=== PATIENT | female | born 1980 | race Hispanic/Latino ===

== ENCOUNTER 2020-07-29 17:14 | Inpatient (IN) | payer OTHER ==
[~2020-07-29] VITALS: Ht 162.6 cm; Wt 142.2 kg
[2020-07-29] MEDS ORDERED: ACETAMINOPHEN 500 MG TABLET ONE (17:27)
[2020-07-29 17:36] LABS: BASOPHILS % (AUTO) 0.1 % (0.0-5.0); EOSINOPHILS % (AUTO) 1.2 % (0.0-8.0); HEMATOCRIT 41.7 % (36-48); LYMPHOCYTES % (AUTO) 60.8 % (21.0-51.0); MEAN CORPUSCULAR HEMOGLOBIN 30.5 pg (27.0-33.0); MEAN CORPUSCULAR HGB CONC 33.8 g/dL (32.0-36.0); MEAN CORPUSCULAR VOLUME 90.3 fL (79-99); MONOCYTES % (AUTO) 4.3 % (3.0-13.0); NEUTROPHILS % (AUTO) 33.4 % (40.0-77.0); PLATELET COUNT (AUTO) 132 K/uL (130-400); RED BLOOD CELL COUNT(AUTO) 4.62 MIL/uL (4.00-5.50); RED CELL DISTRIBUTION WIDTH 12.9 % (11.0-15.5); WHITE BLOOD COUNT (AUTO) 10.2 K/uL (4.8-10.8)
[2020-07-29 17:41] LABS: CARBON DIOXIDE 21 mmol/L (21-32); CHLORIDE 96 mmol/L (101-111); GLOMERULAR FILTR. RATE CALC 65 mL/min (>60); GLUCOSE,RANDOM 256 mg/dL (70-105); POTASSIUM 3.8 mmol/L (3.5-5.1); SODIUM SERUM 130 mmol/L (136-145); UREA NITROGEN, BLOOD 9 mg/dL (7-18)
[2020-07-29 17:48] LABS: INR 1.05 (0.85-1.15); PROTHROMBIN TIME 11.4 SEC (9.6-11.6)
[2020-07-29 17:50] LABS: ABG BASE EXCESS -1.6 mmol/L (-2.0-3.0); ABG HCO3 21.3 mmol/L (21.0-28.0); ABG OXYGEN SATURATION 86.3 % (95.0-99.0); ABG PCO2 31 mmHg (32-45)
[2020-07-29 17:53] LABS: ALANINE AMINOTRANSFERASE 269 U/L (12-78); ALBUMIN 3.1 g/dL (3.5-5.0); ASPARTATE AMINOTRANSFERASE 295 U/L (10-37); BILIRUBIN,TOTAL 0.6 mg/dL (0.2-1.0); CREATINE KINASE, TOTAL 139 U/L (21-232); MYOGLOBIN 42 ng/mL (10-92); TOTAL PROTEIN, SERUM 6.9 g/dL (6.0-8.3); TROPONIN I < 0.04 ng/mL (0.00-0.06)
[2020-07-29] MEDS ORDERED: DEXAMETHASONE SOD PHOSPHATE 10MG/ML 1ML VIAL ONE (18:19)
[2020-07-29] MEDS ORDERED: AZITHROMYCIN 500MG+NS 250ML 250 ML IV ONE (18:19)
[2020-07-29] MEDS ORDERED: ALBUTEROL INHALER 90MCG/INH IH ONE (18:19)
[2020-07-29] MEDS ORDERED: IBUPROFEN 600 MG TABLET ONE (18:20)
[2020-07-29] MEDS ORDERED: CEFTRIAXONE 1G VIAL ONE (18:20)
[2020-07-29] MEDS: FUROSEMIDE 40MG VIAL IVP SCH (21:15)
[2020-07-29] MEDS: CEFTRIAXONE 1G VIAL IVP SCH (21:15)
[2020-07-29] MEDS ORDERED: ONDANSETRON 4MG INJ IV PRN (21:15)
[2020-07-29] MEDS ORDERED: DOXYCYCLINE 100MG+NS 250ML IV SCH (21:15)
[2020-07-29] MEDS ORDERED: ACETAMINOPHEN 325 MG TAB PO PRN (21:15)
[2020-07-29] MEDS: DEXAMETHASONE SOD PHOSPHATE 4 MG/ML 1ML VIAL IVP SCH (21:15)
[2020-07-29] MEDS ORDERED: ERGOCALCIFEROL (VITAMIN D2) 50,000 UNIT CAPSULE PO ONE (21:15)
[2020-07-29] MEDS: DOXYCYCLINE 100MG+NS 250ML 250 ML IV SCH (22:00)
[2020-07-29 22:01] LABS: HEMOGLOBIN A1C 11.3 % (4.0-6.0)
[2020-07-29 22:33] LABS: ALBUMIN 3.1 g/dL (3.5-5.0); BILIRUBIN,DIRECT 0.3 mg/dL (0.0-0.3); BILIRUBIN,TOTAL 0.6 mg/dL (0.2-1.0); CRP QUANTITATIVE 156.8 mg/L (0.00-9.0); MAGNESIUM 1.9 mg/dL (1.80-2.40); PHOSPHORUS 3.5 mg/dL (2.5-4.9); TOTAL PROTEIN, SERUM 7.1 g/dL (6.0-8.3)
[2020-07-30] MEDS ORDERED: 0.9% NACL 250ML 250 ML IV ONE ×2 (01:58→02:32)
[2020-07-30 04:36] LABS: HEMATOCRIT 40.2 % (36-48); LYMPHOCYTES % (AUTO) 70.9 % (21.0-51.0); MEAN CORPUSCULAR HEMOGLOBIN 30.5 pg (27.0-33.0); MEAN CORPUSCULAR HGB CONC 33.1 g/dL (32.0-36.0); MEAN CORPUSCULAR VOLUME 92.2 fL (79-99); MONOCYTES % (AUTO) 2.6 % (3.0-13.0); NEUTROPHILS % (AUTO) 26.3 % (40.0-77.0); PLATELET COUNT (AUTO) 127 K/uL (130-400); RED BLOOD CELL COUNT(AUTO) 4.36 MIL/uL (4.00-5.50); WHITE BLOOD COUNT (AUTO) 8.8 K/uL (4.8-10.8)
[2020-07-30 04:46] LABS: ALBUMIN 3.1 g/dL (3.5-5.0); BILIRUBIN,TOTAL 0.6 mg/dL (0.2-1.0); CRP QUANTITATIVE 148.7 mg/L (0.00-9.0); POTASSIUM 4.4 mmol/L (3.5-5.1); TOTAL PROTEIN, SERUM 6.5 g/dL (6.0-8.3)
[2020-07-30] MEDS: INSULIN LISPRO 100 UNIT/ML 3ML SQ SCH ×7 (07:30→21:00)
[2020-07-30] MEDS ORDERED: ZINC SULFATE 220 CAPSULE ONE (08:21)
[2020-07-30] MEDS ORDERED: ENOXAPARIN SODIUM 40 MG/0.4 ML SYRINGE SQ ONE (08:21)
[2020-07-30] MEDS ORDERED: CEFTRIAXONE 1G VIAL ONE (08:21)
[2020-07-30] MEDS ORDERED: ASCORBIC ACID 500 MG TAB ONE (08:21)
[2020-07-30] MEDS ORDERED: DOXYCYCLINE 100MG+NS 250ML 250 ML IV ONE (08:21)
[2020-07-30] MEDS ORDERED: FAMOTIDINE 20MG VIAL IV ONE (08:22)
[2020-07-30] MEDS: FAMOTIDINE 20MG VIAL IV SCH ×2 (09:00→21:00)
[2020-07-30] MEDS: ENOXAPARIN SODIUM 40 MG/0.4 ML SYRINGE SQ SCH (09:00)
[2020-07-30] MEDS: DOXYCYCLINE 100MG+NS 250ML 250 ML IV SCH ×2 (09:00→21:00)
[2020-07-30] MEDS: ASCORBIC ACID 500 MG TAB PO SCH (09:00)
[2020-07-30] MEDS: ZINC SULFATE 220 CAPSULE PO SCH (09:00)
[2020-07-30] MEDS: CEFTRIAXONE 1G VIAL IVP SCH ×2 (09:15→21:15)
[2020-07-30] MEDS ORDERED: PHARMACY COMMUNICATION MISC SCH (13:15)
[2020-07-30] MEDS: INSULIN GLARGINE 100 UNITS/ML 10 ML VIAL SQ SCH (21:00)
[2020-07-30] MEDS: DEXAMETHASONE SOD PHOSPHATE 4 MG/ML 1ML VIAL IVP SCH (21:15)
[2020-07-30] MEDS: FUROSEMIDE 40MG VIAL IVP SCH (21:15)
[2020-07-30] MEDS ORDERED: DEXAMETHASONE SOD PHOSPHATE 10MG/ML 1ML VIAL ONE (23:57)
[2020-07-30] MEDS ORDERED: ACETAMINOPHEN 325 MG TAB ONE (23:57)
[2020-07-30] MEDS ORDERED: FUROSEMIDE 40MG VIAL ONE (23:59)
[2020-07-30] MEDS ORDERED: INSULIN HUMULIN R 100 UNIT/ML 3ML ONE (23:59)
[2020-07-31] MEDS ORDERED: FAMOTIDINE 20MG VIAL IV ONE
[2020-07-31] MEDS ORDERED: CEFTRIAXONE 1G VIAL ONE
[2020-07-31] MEDS ORDERED: DOXYCYCLINE 100MG+NS 250ML 250 ML IV ONE
[2020-07-31 01:20] VITALS: BP 115/72
[2020-07-31] MEDS: INSULIN GLARGINE 100 UNITS/ML 10 ML VIAL SQ SCH ×2 (01:40→21:17)
[2020-07-31] MEDS ORDERED: LISI2.5T13 PO (01:51)
[2020-07-31] MEDS ORDERED: LINA5TAB PO (01:54)
[2020-07-31] MEDS: ACETAMINOPHEN 325 MG TAB PO PRN ×2 (03:24→21:59)
[2020-07-31 03:54] VITALS: BP 130/75
[2020-07-31 04:33] LABS: BASOPHILS % (AUTO) 0.1 % (0.0-5.0); HEMATOCRIT 43.5 % (36-48); LYMPHOCYTES % (AUTO) 49.1 % (21.0-51.0); MEAN CORPUSCULAR HGB CONC 33.3 g/dL (32.0-36.0); MEAN CORPUSCULAR VOLUME 89.9 fL (79-99); MONOCYTES % (AUTO) 4.3 % (3.0-13.0); NEUTROPHILS % (AUTO) 46.3 % (40.0-77.0); PLATELET COUNT (AUTO) 194 K/uL (130-400); RED BLOOD CELL COUNT(AUTO) 4.84 MIL/uL (4.00-5.50); RED CELL DISTRIBUTION WIDTH 12.9 % (11.0-15.5)
[2020-07-31 04:49] LABS: ALBUMIN 3.1 g/dL (3.5-5.0); BILIRUBIN,TOTAL 0.5 mg/dL (0.2-1.0); CREATININE 0.9 mg/dL (0.5-1.5); CRP QUANTITATIVE 94.4 mg/L (0.00-9.0); TOTAL PROTEIN, SERUM 7.4 g/dL (6.0-8.3)
[2020-07-31] MEDS: INSULIN LISPRO 100 UNIT/ML 3ML SQ SCH ×7 (06:42→21:14)
[2020-07-31 08:00] VITALS: BP 129/86
[2020-07-31] MEDS: FAMOTIDINE 20MG VIAL IV SCH ×2 (08:36→21:12)
[2020-07-31] MEDS: ASCORBIC ACID 500 MG TAB PO SCH (08:36)
[2020-07-31] MEDS: ZINC SULFATE 220 CAPSULE PO SCH (08:37)
[2020-07-31] MEDS: ENOXAPARIN SODIUM 40 MG/0.4 ML SYRINGE SQ SCH (08:38)
[2020-07-31] MEDS: CEFTRIAXONE 1G VIAL IVP SCH ×2 (08:38→21:12)
[2020-07-31 09:13] LABS: HEPATITIS A ANTIBODY IGM Negative (Negative); HEPATITIS B CORE IGM Negative (Negative); HEPATITIS Bs ANTIGEN SCREEN P Negative (Negative)
[2020-07-31] MEDS ORDERED: PHARMACY COMMUNICATION MISC SCH ×3 (11:00→17:15)
[2020-07-31] MEDS: DOXYCYCLINE 100MG+NS 250ML 250 ML IV SCH ×2 (11:54→21:11)
[2020-07-31 12:00] VITALS: BP 108/64
[2020-07-31] MEDS ORDERED: GUAIFENESIN-DM 200/20 MG 10 ML ONE (13:51)
[2020-07-31 16:00] VITALS: BP 137/79
[2020-07-31 20:00] VITALS: BP 142/98
[2020-07-31] MEDS: DEXAMETHASONE SOD PHOSPHATE 4 MG/ML 1ML VIAL IVP SCH (21:12)
[2020-07-31] MEDS: FUROSEMIDE 40MG VIAL IVP SCH (21:57)
[2020-08-01] VITALS: BP 107/48
[2020-08-01 04:00] VITALS: BP 106/59
[2020-08-01 05:38] LABS: APPEARANCE,URINE Cloudy (CLEAR); BILIRUBIN,URINE Negative (NEGATIVE); COLOR,URINE Yellow (YELLOW); GLUCOSE, URINE (UA) 500 mg/dL (NEGATIVE); KETONES,URINE >=80 mg/dL (NEGATIVE); LEUKOCYTE ESTERASE ,URINE Moderate (NEGATIVE); NITRATE,URINE Negative (NEGATIVE); OCCULT BLOOD,URINE Large (NEGATIVE); PH,URINE 6.5 (5.0-8.0); PROTEIN,URINE POS 1+ mg/dL (NEGATIVE); UROBILINOGEN,URINE 0.2 mg/dL (0.2-1.0)
[2020-08-01 05:52] LABS: BACTERIA,URINE Moderate /HPF (None Seen); TRICHOMONAS,URINE Moderate /LPF (None Seen); WBC,URINE >100 /HPF (0-1)
[2020-08-01 06:07] LABS: EOSINOPHILS % (AUTO) 0.9 % (0.0-8.0); HEMATOCRIT 40.7 % (36-48); MEAN CORPUSCULAR HEMOGLOBIN 30.3 pg (27.0-33.0); MEAN CORPUSCULAR HGB CONC 33.9 g/dL (32.0-36.0); MEAN CORPUSCULAR VOLUME 89.3 fL (79-99); MONOCYTES % (AUTO) 5.7 % (3.0-13.0); NEUTROPHILS % (AUTO) 45.2 % (40.0-77.0); PLATELET COUNT (AUTO) 197 K/uL (130-400); RED BLOOD CELL COUNT(AUTO) 4.56 MIL/uL (4.00-5.50); RED CELL DISTRIBUTION WIDTH 12.7 % (11.0-15.5); WHITE BLOOD COUNT (AUTO) 10.2 K/uL (4.8-10.8)
[2020-08-01 06:25] LABS: ALBUMIN 2.8 g/dL (3.5-5.0); BILIRUBIN,TOTAL 0.6 mg/dL (0.2-1.0); CREATININE 0.8 mg/dL (0.5-1.5); CRP QUANTITATIVE 91.6 mg/L (0.00-9.0); POTASSIUM 3.7 mmol/L (3.5-5.1); TOTAL PROTEIN, SERUM 6.8 g/dL (6.0-8.3)
[2020-08-01] MEDS: INSULIN LISPRO 100 UNIT/ML 3ML SQ SCH ×7 (06:41→20:50)
[2020-08-01] MEDS: ENOXAPARIN SODIUM 40 MG/0.4 ML SYRINGE SQ SCH (08:51)
[2020-08-01] MEDS: ZINC SULFATE 220 CAPSULE PO SCH (08:52)
[2020-08-01] MEDS: CEFTRIAXONE 1G VIAL IVP SCH ×2 (08:52→20:54)
[2020-08-01] MEDS: FAMOTIDINE 20MG VIAL IV SCH ×2 (08:52→21:22)
[2020-08-01] MEDS: LISINOPRIL 2.5 MG TABLET PO SCH (08:52)
[2020-08-01] MEDS: ASCORBIC ACID 500 MG TAB PO SCH (08:52)
[2020-08-01] MEDS: DOXYCYCLINE 100MG+NS 250ML 250 ML IV SCH ×2 (08:53→20:54)
[2020-08-01 09:10] VITALS: BP 125/87
[2020-08-01] MEDS: GUAIFENESIN-DM 200/20 MG 10 ML PO PRN ×2 (09:31→13:04)
[2020-08-01 12:23] VITALS: BP 133/82
[2020-08-01] MEDS ORDERED: COMPOUND IV REFRIGERATED 1 EACH IVSOLN MISC PRN (14:00)
[2020-08-01] MEDS ORDERED: REMDESIVIR (EUA) 520 200 MG in 0.9% NACL 250ML 250 ML IV ONE (14:00)
[2020-08-01] MEDS: ACETAMINOPHEN 325 MG TAB PO PRN (18:06)
[2020-08-01 18:51] VITALS: BP 124/73
[2020-08-01 19:00] VITALS: BP 109/74
[2020-08-01] MEDS: INSULIN GLARGINE 100 UNITS/ML 10 ML VIAL SQ SCH (20:51)
[2020-08-01] MEDS: FUROSEMIDE 40MG VIAL IVP SCH (20:54)
[2020-08-01] MEDS: DEXAMETHASONE SOD PHOSPHATE 4 MG/ML 1ML VIAL IVP SCH (20:54)
[2020-08-02] VITALS: BP 113/68
[2020-08-02 04:00] VITALS: BP 105/62
[2020-08-02 05:15] LABS: ALBUMIN 2.7 g/dL (3.5-5.0); BILIRUBIN,TOTAL 0.6 mg/dL (0.2-1.0); CREATININE 0.6 mg/dL (0.5-1.5); POTASSIUM 3.8 mmol/L (3.5-5.1); TOTAL PROTEIN, SERUM 6.1 g/dL (6.0-8.3)
[2020-08-02] MEDS: REMDESIVIR LABS MISC SCH (06:00)
[2020-08-02] MEDS: INSULIN LISPRO 100 UNIT/ML 3ML SQ SCH ×7 (06:57→20:10)
[2020-08-02 08:00] VITALS: BP 112/70
[2020-08-02] MEDS: DOXYCYCLINE 100MG+NS 250ML 250 ML IV SCH ×2 (09:38→20:01)
[2020-08-02] MEDS: FAMOTIDINE 20MG VIAL IV SCH ×2 (09:38→20:02)
[2020-08-02] MEDS: LISINOPRIL 2.5 MG TABLET PO SCH (09:40)
[2020-08-02] MEDS: ZINC SULFATE 220 CAPSULE PO SCH (09:40)
[2020-08-02] MEDS: ASCORBIC ACID 500 MG TAB PO SCH (09:40)
[2020-08-02] MEDS: ENOXAPARIN SODIUM 40 MG/0.4 ML SYRINGE SQ SCH (09:41)
[2020-08-02] MEDS: CEFTRIAXONE 1G VIAL IVP SCH ×2 (09:41→20:01)
[2020-08-02 12:00] VITALS: BP 127/68
[2020-08-02] MEDS: REMDESIVIR (EUA) 520 100 MG in 0.9% NACL 250ML 250 ML IV SCH (14:39)
[2020-08-02 18:02] VITALS: BP 120/68
[2020-08-02 19:00] VITALS: BP 134/79
[2020-08-02] MEDS ORDERED: IBUPROFEN 400 MG TABLET PO PRN (19:00)
[2020-08-02] MEDS ORDERED: KCL 20 MEQ ERTAB PO SCH (19:00)
[2020-08-02] MEDS: DEXAMETHASONE SOD PHOSPHATE 4 MG/ML 1ML VIAL IVP SCH (20:02)
[2020-08-02] MEDS: INSULIN GLARGINE 100 UNITS/ML 10 ML VIAL SQ SCH (20:07)
[2020-08-02] MEDS: FUROSEMIDE 40MG VIAL IVP SCH (21:15)
[2020-08-03] VITALS: BP 119/76
[2020-08-03 04:00] VITALS: BP 124/71
[2020-08-03 05:55] LABS: BASOPHILS % (AUTO) 0.1 % (0.0-5.0); LYMPHOCYTES % (AUTO) 51.3 % (21.0-51.0); MEAN CORPUSCULAR HGB CONC 33.8 g/dL (32.0-36.0); MEAN CORPUSCULAR VOLUME 88.9 fL (79-99); MONOCYTES % (AUTO) 4.7 % (3.0-13.0); NEUTROPHILS % (AUTO) 43.6 % (40.0-77.0); PLATELET COUNT (AUTO) 240 K/uL (130-400); RED CELL DISTRIBUTION WIDTH 12.7 % (11.0-15.5); WHITE BLOOD COUNT (AUTO) 9.8 K/uL (4.8-10.8)
[2020-08-03] MEDS: REMDESIVIR LABS MISC SCH (06:00)
[2020-08-03 06:19] LABS: ALBUMIN 2.4 g/dL (3.5-5.0); BILIRUBIN,DIRECT 0.2 mg/dL (0.0-0.3); BILIRUBIN,TOTAL 0.7 mg/dL (0.2-1.0); CREATININE 0.7 mg/dL (0.5-1.5); CRP QUANTITATIVE 146.7 mg/L (0.00-9.0); MAGNESIUM 1.8 mg/dL (1.80-2.40); POTASSIUM 3.6 mmol/L (3.5-5.1); TOTAL PROTEIN, SERUM 6.4 g/dL (6.0-8.3)
[2020-08-03] MEDS: INSULIN LISPRO 100 UNIT/ML 3ML SQ SCH ×5 (06:37→16:49)
[2020-08-03] MEDS: LISINOPRIL 2.5 MG TABLET PO SCH (08:32)
[2020-08-03] MEDS: ZINC SULFATE 220 CAPSULE PO SCH (08:32)
[2020-08-03] MEDS: FAMOTIDINE 20MG VIAL IV SCH ×2 (08:32→20:16)
[2020-08-03] MEDS: ASCORBIC ACID 500 MG TAB PO SCH (08:33)
[2020-08-03] MEDS: DOXYCYCLINE 100MG+NS 250ML 250 ML IV SCH ×2 (08:33→20:16)
[2020-08-03] MEDS: CEFTRIAXONE 1G VIAL IVP SCH ×2 (08:33→20:21)
[2020-08-03] MEDS: ENOXAPARIN SODIUM 40 MG/0.4 ML SYRINGE SQ SCH (08:33)
[2020-08-03 09:12] VITALS: BP 126/48
[2020-08-03 12:00] VITALS: BP 126/85
[2020-08-03] MEDS: GUAIFENESIN-DM 200/20 MG 10 ML PO PRN ×2 (12:11→20:16)
[2020-08-03] MEDS: REMDESIVIR (EUA) 520 100 MG in 0.9% NACL 250ML 250 ML IV SCH (14:12)
[2020-08-03] MEDS ORDERED: KCL 20 MEQ ERTAB PO SCH (16:00)
[2020-08-03] MEDS: DEXAMETHASONE SOD PHOSPHATE 4 MG/ML 1ML VIAL IVP SCH (16:45)
[2020-08-03] MEDS: INSULIN HUMULIN R 100 UNIT/ML 3ML SQ SCH ×2 (16:49→20:33)
[2020-08-03 17:22] VITALS: BP 130/72
[2020-08-03 19:00] VITALS: BP 109/77
[2020-08-03] MEDS ORDERED: INSULIN GLARGINE 100 UNITS/ML 10 ML VIAL SQ SCH (21:00)
[2020-08-04] VITALS: BP 147/69
[2020-08-04] MEDS: DEXAMETHASONE SOD PHOSPHATE 4 MG/ML 1ML VIAL IVP SCH ×2 (03:04→14:48)
[2020-08-04 04:00] VITALS: BP 121/70
[2020-08-04 04:15] LABS: HEMATOCRIT 39.3 % (36-48); LYMPHOCYTES % (AUTO) 46.3 % (21.0-51.0); MEAN CORPUSCULAR HEMOGLOBIN 29.8 pg (27.0-33.0); MEAN CORPUSCULAR HGB CONC 33.6 g/dL (32.0-36.0); MEAN CORPUSCULAR VOLUME 88.7 fL (79-99); MONOCYTES % (AUTO) 5.1 % (3.0-13.0); NEUTROPHILS % (AUTO) 47.9 % (40.0-77.0); PLATELET COUNT (AUTO) 284 K/uL (130-400); RED BLOOD CELL COUNT(AUTO) 4.43 MIL/uL (4.00-5.50); RED CELL DISTRIBUTION WIDTH 12.8 % (11.0-15.5)
[2020-08-04 04:30] LABS: CREATININE 0.7 mg/dL (0.5-1.5); CRP QUANTITATIVE 91.8 mg/L (0.00-9.0); POTASSIUM 3.7 mmol/L (3.5-5.1)
[2020-08-04] MEDS: REMDESIVIR LABS MISC SCH (06:00)
[2020-08-04] MEDS: INSULIN LISPRO 100 UNIT/ML 3ML SQ SCH ×3 (06:41→17:09)
[2020-08-04] MEDS: INSULIN HUMULIN R 100 UNIT/ML 3ML SQ SCH ×4 (06:43→20:41)
[2020-08-04 08:24] VITALS: BP 133/78
[2020-08-04] MEDS: ZINC SULFATE 220 CAPSULE PO SCH (08:28)
[2020-08-04] MEDS: CEFTRIAXONE 1G VIAL IVP SCH ×2 (08:28→20:41)
[2020-08-04] MEDS: ASCORBIC ACID 500 MG TAB PO SCH (08:28)
[2020-08-04] MEDS: ENOXAPARIN SODIUM 40 MG/0.4 ML SYRINGE SQ SCH (08:28)
[2020-08-04] MEDS: FAMOTIDINE 20MG VIAL IV SCH ×2 (08:28→20:38)
[2020-08-04] MEDS: LISINOPRIL 2.5 MG TABLET PO SCH (08:28)
[2020-08-04] MEDS: DOXYCYCLINE 100MG+NS 250ML 250 ML IV SCH ×2 (08:28→20:38)
[2020-08-04 12:41] VITALS: BP 150/76
[2020-08-04] MEDS: REMDESIVIR (EUA) 520 100 MG in 0.9% NACL 250ML 250 ML IV SCH (14:48)
[2020-08-04] MEDS ORDERED: KCL 20 MEQ ERTAB PO SCH (15:30)
[2020-08-04] MEDS: GUAIFENESIN-DM 200/20 MG 10 ML PO PRN ×2 (17:26→23:58)
[2020-08-04 18:17] VITALS: BP 128/79
[2020-08-04] MEDS: INSULIN GLARGINE 100 UNITS/ML 10 ML VIAL SQ SCH (20:40)
[2020-08-05] VITALS: BP 130/61
[2020-08-05] MEDS: DEXAMETHASONE SOD PHOSPHATE 4 MG/ML 1ML VIAL IVP SCH ×2 (01:48→15:05)
[2020-08-05 04:00] VITALS: BP 123/78
[2020-08-05] MEDS: REMDESIVIR LABS MISC SCH (06:00)
[2020-08-05 06:22] LABS: BASOPHILS % (AUTO) 0.2 % (0.0-5.0); HEMATOCRIT 46.5 % (36-48); LYMPHOCYTES % (AUTO) 52.6 % (21.0-51.0); MEAN CORPUSCULAR HEMOGLOBIN 29.7 pg (27.0-33.0); MEAN CORPUSCULAR HGB CONC 33.1 g/dL (32.0-36.0); MEAN CORPUSCULAR VOLUME 89.6 fL (79-99); MONOCYTES % (AUTO) 3.9 % (3.0-13.0); NEUTROPHILS % (AUTO) 42.3 % (40.0-77.0); PLATELET COUNT (AUTO) 340 K/uL (130-400); RED BLOOD CELL COUNT(AUTO) 5.19 MIL/uL (4.00-5.50); RED CELL DISTRIBUTION WIDTH 12.8 % (11.0-15.5); WHITE BLOOD COUNT (AUTO) 21.3 K/uL (4.8-10.8)
[2020-08-05 06:34] LABS: CREATININE 0.8 mg/dL (0.5-1.5); MAGNESIUM 1.6 mg/dL (1.80-2.40); POTASSIUM 3.5 mmol/L (3.5-5.1)
[2020-08-05] MEDS: INSULIN HUMULIN R 100 UNIT/ML 3ML SQ SCH ×4 (07:19→20:51)
[2020-08-05] MEDS: INSULIN LISPRO 100 UNIT/ML 3ML SQ SCH ×3 (07:21→16:53)
[2020-08-05 07:30] VITALS: BP 130/77
[2020-08-05] MEDS: DOXYCYCLINE 100MG+NS 250ML 250 ML IV SCH ×2 (08:14→20:25)
[2020-08-05] MEDS: LISINOPRIL 2.5 MG TABLET PO SCH (08:14)
[2020-08-05] MEDS: ASCORBIC ACID 500 MG TAB PO SCH (08:14)
[2020-08-05] MEDS: CEFTRIAXONE 1G VIAL IVP SCH (08:14)
[2020-08-05] MEDS: ZINC SULFATE 220 CAPSULE PO SCH (08:14)
[2020-08-05] MEDS: FAMOTIDINE 20MG VIAL IV SCH ×2 (08:14→20:25)
[2020-08-05] MEDS: ENOXAPARIN SODIUM 40 MG/0.4 ML SYRINGE SQ SCH (08:14)
[2020-08-05 11:00] VITALS: BP 102/53
[2020-08-05] MEDS: BARICITINIB (EUA) 2 MG TABLET PO SCH (12:11)
[2020-08-05 16:00] VITALS: BP 120/78
[2020-08-05] MEDS: REMDESIVIR (EUA) 520 100 MG in 0.9% NACL 250ML 250 ML IV SCH (16:47)
[2020-08-05] MEDS ORDERED: KCL 20 MEQ ERTAB PO SCH (19:15)
[2020-08-05] MEDS ORDERED: MAGNESIUM 2GM PREMIX 50ML 50 ML IV SCH (19:15)
[2020-08-05] MEDS ORDERED: MAGNESIUM 2GM PREMIX 50ML 50 ML IV ONE (19:46)
[2020-08-05] MEDS ORDERED: KCL 20 MEQ ERTAB PO ONE (19:46)
[2020-08-05 20:33] VITALS: BP 129/72
[2020-08-05] MEDS: INSULIN GLARGINE 100 UNITS/ML 10 ML VIAL SQ SCH (20:51)
[2020-08-06 00:11] VITALS: BP 134/83
[2020-08-06] MEDS ORDERED: PHARMACY COMMUNICATION MISC SCH ×2 (00:45→12:00)
[2020-08-06] MEDS: REMDESIVIR LABS MISC SCH (01:09)
[2020-08-06 04:23] VITALS: BP 118/76
[2020-08-06] MEDS: INSULIN LISPRO 100 UNIT/ML 3ML SQ SCH ×2 (05:49→11:30)
[2020-08-06] MEDS: INSULIN HUMULIN R 100 UNIT/ML 3ML SQ SCH ×2 (05:50→11:30)
[2020-08-06 06:18] LABS: ALBUMIN 2.3 g/dL (3.5-5.0); BILIRUBIN,DIRECT 0.3 mg/dL (0.0-0.3); BILIRUBIN,TOTAL 0.8 mg/dL (0.2-1.0); CREATININE 0.7 mg/dL (0.5-1.5); CRP QUANTITATIVE 156.8 mg/L (0.00-9.0); MAGNESIUM 1.5 mg/dL (1.80-2.40)
[2020-08-06 06:41] LABS: BASOPHILS % (AUTO) 0.1 % (0.0-5.0); EOSINOPHILS % (AUTO) 0.1 % (0.0-8.0); HEMATOCRIT 40.7 % (36-48); LYMPHOCYTES % (AUTO) 44.7 % (21.0-51.0); MEAN CORPUSCULAR HGB CONC 33.4 g/dL (32.0-36.0); MEAN CORPUSCULAR VOLUME 89.6 fL (79-99); MONOCYTES % (AUTO) 4.3 % (3.0-13.0); NEUTROPHILS % (AUTO) 49.7 % (40.0-77.0); PLATELET COUNT (AUTO) 219 K/uL (130-400); RED BLOOD CELL COUNT(AUTO) 4.54 MIL/uL (4.00-5.50); RED CELL DISTRIBUTION WIDTH 13.2 % (11.0-15.5); WHITE BLOOD COUNT (AUTO) 16.1 K/uL (4.8-10.8)
[2020-08-06 07:05] LABS: POTASSIUM 4.1 mmol/L (3.5-5.1)
[2020-08-06] MEDS: BARICITINIB (EUA) 2 MG TABLET PO SCH (09:00)
[2020-08-06] MEDS ORDERED: ENOXAPARIN SODIUM 0.5 MG/KG EACH SQ SCH (09:00)
[2020-08-06] MEDS ORDERED: DEXAMETHASONE SOD PHOSPHATE 4 MG/ML 1ML VIAL IVP SCH (09:00)
[2020-08-06 09:06] VITALS: BP 132/80
[2020-08-06] MEDS ORDERED: FUROSEMIDE 20MG VIAL IV SCH (09:15)
[2020-08-06] MEDS: LISINOPRIL 2.5 MG TABLET PO SCH (09:24)
[2020-08-06] MEDS: ZINC SULFATE 220 CAPSULE PO SCH (09:24)
[2020-08-06] MEDS: ASCORBIC ACID 500 MG TAB PO SCH (09:24)
[2020-08-06 09:27] LABS: ABG BASE EXCESS -1.1 mmol/L (-2.0-3.0); ABG HCO3 24.9 mmol/L (21.0-28.0); ABG OXYGEN SATURATION 90.1 % (95.0-99.0); ABG PCO2 46 mmHg (32-45)
[2020-08-06 10:00] VITALS: BP 128/76
[2020-08-06] MEDS ORDERED: ENOXAPARIN SODIUM 80 MG/0.8 ML SQ SCH ×2 (10:15→21:00)
[2020-08-06] MEDS ORDERED: LORAZEPAM 2 MG/ML 1 ML VIAL ONE (10:22)
[2020-08-06] MEDS ORDERED: DEXMEDETOMIDINE HCL 200 MCG in 0.9%NACL 50ML 50 ML IV SCH (11:00)
[2020-08-06] MEDS ORDERED: FENTANYL 2500MCG+NS 250ML 250 ML IV ONE (11:23)
[2020-08-06] MEDS ORDERED: PROPOFOL 1000 MG/100 ML 100 ML IV ONE (11:26)
[2020-08-06] MEDS ORDERED: 0.9% NACL 500ML IV.SOLN 500 ML IV ONE (11:29)
[2020-08-06 16:42] VITALS: BP 95/55
[2020-08-06] MEDS ORDERED: ENOXAPARIN SODIUM 60 MG/0.6 ML SQ SCH (21:00)
[2020-08-06] MEDS ORDERED: FAMOTIDINE 20MG TAB PO SCH (21:00)
== END 2020-08-06 12:42 | disposition expired | DRG 871 ==
LOC: EDH 17:14 → EDHIP 21:09 → 4AH 07-30 22:13 → 2AH 08-06 08:51
PROVIDERS: ADMIT Internal Medicine; ATTEND Internal Medicine
PROC: XW13325 Transfusion of Convalescent Plasma (Nonautologous) into Peripheral Vein, Percutaneous Approach, New Technology Group 5 (ICD-10-PCS; principal; 2020-07-30)
PROC: 5A0935A Assistance with Respiratory Ventilation, Less than 24 Consecutive Hours, High Flow/Velocity Cannula (ICD-10-PCS; 2020-07-31)
PROC: XW033E5 Introduction of Remdesivir Anti-infective into Peripheral Vein, Percutaneous Approach, New Technology Group 5 (ICD-10-PCS; 2020-08-01)
PROC: 5A0935A Assistance with Respiratory Ventilation, Less than 24 Consecutive Hours, High Flow/Velocity Cannula (ICD-10-PCS; 2020-08-01)
PROC: 5A0945A Assistance with Respiratory Ventilation, 24-96 Consecutive Hours, High Flow/Velocity Cannula (ICD-10-PCS; 2020-08-02)
PROC: 5A0945A Assistance with Respiratory Ventilation, 24-96 Consecutive Hours, High Flow/Velocity Cannula (ICD-10-PCS; 2020-08-04)
PROC: 5A09357 Assistance with Respiratory Ventilation, Less than 24 Consecutive Hours, Continuous Positive Airway Pressure (ICD-10-PCS; 2020-08-06)
PROC: 5A12012 Performance of Cardiac Output, Single, Manual (ICD-10-PCS; 2020-08-06)
PROC: B543ZZA Ultrasonography of Right Jugular Veins, Guidance (ICD-10-PCS; 2020-08-06)
PROC: 05HY33Z Insertion of Infusion Device into Upper Vein, Percutaneous Approach (ICD-10-PCS; 2020-08-06)
PROC: 5A1935Z Respiratory Ventilation, Less than 24 Consecutive Hours (ICD-10-PCS; 2020-08-06)
PROC: 0BH17EZ Insertion of Endotracheal Airway into Trachea, Via Natural or Artificial Opening (ICD-10-PCS; 2020-08-06)
PROC: 5A0935A Assistance with Respiratory Ventilation, Less than 24 Consecutive Hours, High Flow/Velocity Cannula (ICD-10-PCS; 2020-08-06)
DX: A41.89 Other specified sepsis (principal); U07.1 COVID-19; J12.82 Pneumonia due to coronavirus disease 2019; J80 Acute respiratory distress syndrome; E87.1 Hypo-osmolality and hyponatremia; B17.9 Acute viral hepatitis, unspecified; Z68.43 Body mass index [BMI] 50.0-59.9, adult; E66.01 Morbid (severe) obesity due to excess calories; E11.9 Type 2 diabetes mellitus without complications; E87.8 Other disorders of electrolyte and fluid balance, not elsewhere classified; F17.210 Nicotine dependence, cigarettes, uncomplicated; I10 Essential (primary) hypertension; I46.9 Cardiac arrest, cause unspecified; I49.01 Ventricular fibrillation; E83.42 Hypomagnesemia; E87.6 Hypokalemia; Z79.899 Other long term (current) drug therapy; Z90.710 Acquired absence of both cervix and uterus; Z90.49 Acquired absence of other specified parts of digestive tract
CPT/HCPCS: 31500; 36415; 36600; 71045; 76700; 80048; 80053; 80061; 80074; 80076; 81001; 82550; 82728; 82803; 82948; 83036; 83605; 83615; 83735; 83874; 83880; 84100; 84145; 84484; 85025; 85378; 85610; 85730; 86140; 86701; 86850; 86900; 86901; 86927; 87040; 87088; 87390; 87426; 87804; 92950; 93005; 93970; 94002; 94660; 99291; G0378; J0456; J0696; J1100; J1650; J1815; J1940; J2060; J2405; J2704; J3010; J3475; J3490; J7040; J7050; U0003